=== PATIENT | female | born 1975 | race African-American/Black ===

== ENCOUNTER 2018-10-06 19:51 | Emergency (ER) | payer SELFPAY ==
[~2018-10-06] VITALS: Ht 162.6 cm; Wt 63.5 kg
--- OUTSIDE RECORDS SUMMARY | 2018-10-06 19:53 | XMS REPORT | Clinical Summary ---
Author Author [facility] Address Unknown Phone Unavailable Care Team Providers Care Clinical Informatics Spec Name Role Phone Sharpless PCP Allergies No Known Allergies Medications No known medications Active Problems Not on file Immunizations Name Dates Previously Given Next Due Tdap 12/01/2016 Social History Date Tobacco Use Types Packs/Day Years Used Never Smoker Alcohol Use Drinks/Week oz/Week Comments Yes socially Sex Assigned at Date Recorded Not on file Industry Job Start Date Occupation Not on file Not on file Not on file Travel End Travel History Travel Start No recent travel history available. Last Filed Vital Signs Not on file Plan of Treatment Not on file Results Not on fileafter 10/05/2017
[2018-10-06] MEDS ORDERED: KETOROLAC TROMETHAMINE 30 MG/ML VIAL IV STA (21:45)
[2018-10-06] MEDS ORDERED: ONDANSETRON HCL INJ 2MG/ML 2ML 2 MG/ML VIAL IV STA (21:45)
[2018-10-06] MEDS ORDERED: ACETAMINOPHEN 325 MG TAB PO ONE (21:45)
[2018-10-06] MEDS ORDERED: FENTANYL CITRATE/PF 100MCG/2 ML INJ IV ONE (23:15)
--- NOTE | 2018-10-06 23:24 | Diagnostic Imaging Report ---
EXAM: CT Abdomen and Pelvis WITHOUT contrast INDICATION: Lower back pain. Left-sided flank pain x5 days. COMPARISON: None. TECHNIQUE: Abdomen and pelvis were scanned utilizing a multidetector helical scanner from the lung base to the pubic symphysis without administration of IV contrast. Absence of intravenous contrast decreases sensitivity for detection of focal lesions and vascular pathology. Coronal and sagittal reformations were obtained. Stone protocol is performed. IV CONTRAST: None ORAL CONTRAST: Water COMPLICATIONS: None RADIATION DOSE: Total DLP: 523.12 mGy*cm Estimated effective dose: (DLP x 0.015 x size factor) mSv CTDIvol has been reviewed. It is below the limits set by the Radiation Protocol Committee (RPC). Dose modulation, iterative reconstruction, and/or weight based adjustment of the mA/kV was utilized to reduce the radiation dose to as low as reasonably achievable. FINDINGS: LINES and TUBES: None. LOWER THORAX: Unremarkable HEPATOBILIARY: No focal hepatic lesions. No biliary ductal dilation. GALLBLADDER: No radio-opaque stones or sludge. No wall thickening. SPLEEN: No splenomegaly. PANCREAS: No focal masses or ductal dilatation. ADRENALS: No adrenal nodules KIDNEYS/URETERS: Mild right renal cortical scarring. No hydronephrosis. No cystic or solid mass lesions. Several punctate 1 to 2 mm hyperdensities in the right kidney, likely developing stones. GI TRACT: No abnormal distention, wall thickening, or evidence of bowel obstruction. Appendix is not clearly identified. There is however no fat stranding or adenopathy in the right lower quadrant to suggest appendicitis. PELVIC ORGANS/BLADDER: Unremarkable. LYMPH NODES: No lymphadenopathy. VESSELS: Unremarkable. PERITONEUM / RETROPERITONEUM: No free air or fluid. BONES: Focal moderate degenerative changes at L5-S1 with posterior disc osteophyte. SOFT TISSUES: Multiple rounded densities within the posterior gluteal subcutaneous tissue, likely injection granulomas, such as free silicone injection. Bilateral breast implants. IMPRESSION: 1. Several nonobstructing right renal stone. No left renal stones. 2. Right renal cortical scarring. 3. Bilateral breast implants. Free silicone injection in bilateral buttocks. 4. Focal moderate degenerative changes at L5-S1. Signed by: Dr. Erasto Goyal M.D. on 10/06/2018 11:20 PM
[2018-10-07 00:10] VITALS: BP 118/72
== END 2018-10-07 00:10 | disposition home or self-care (01) ==
LOC: FSED 19:51
DX: M54.5 Low back pain (principal); R10.9 Unspecified abdominal pain; R11.0 Nausea
CPT/HCPCS: 74176; 80053; 81003; 81025; 85025; 99283